=== PATIENT | female | born 1965 | race Two or more races ===

== ENCOUNTER 2021-07-23 09:39 | Emergency (ER) | payer OTHER ==
[~2021-07-23] VITALS: Ht 162.6 cm; Wt 86.2 kg
[2021-07-23] MEDS ORDERED: OMEPRAZOLE40 MG PO (10:08)
[2021-07-23] MEDS ORDERED: LOSARTAN POTAS100 MG PO (10:09)
[2021-07-23] MEDS ORDERED: LANTUS SOL100 UNIT/1 (10:09)
[2021-07-23] MEDS ORDERED: ATORVASTATIN CA10 MG PO (10:09)
[2021-07-23] MEDS ORDERED: LASIX20 MG PO (10:10)
[2021-07-23] MEDS ORDERED: ADULT LOW DOSE81 M1 PO (10:16)
== END 2021-07-23 13:11 | disposition home or self-care (01) ==
LOC: ER 09:39
DX: R06.02 Shortness of breath (principal); Z20.822 Contact with and (suspected) exposure to COVID-19

== ENCOUNTER 2022-03-13 12:14 | Emergency (ER) | payer OTHER ==
[~2022-03-13] VITALS: Ht 160 cm; Wt 90.7 kg
[~2022-03-13 12:14] MED LIST: ADULT LOW DOSE81 M1 PO; ATORVASTATIN CA10 MG PO; LANTUS SOL100 UNIT/1; LASIX20 MG PO; LOSARTAN POTAS100 MG PO; OMEPRAZOLE40 MG PO
[2022-03-13] MEDS ORDERED: BUSPIRONE HCL5 MG PO (12:24)
[2022-03-13] MEDS ORDERED: KAPSPARGO SPRI100 MG PO (12:25)
[2022-03-13] MEDS ORDERED: LAMOTRIGINE200 MG PO (12:25)
== END 2022-03-13 19:10 | disposition home or self-care (01) ==
LOC: ER 12:14
DX: R10.11 Right upper quadrant pain (principal); K57.90 Diverticulosis of intestine, part unspecified, without perforation or abscess without bleeding; R16.0 Hepatomegaly, not elsewhere classified; K76.0 Fatty (change of) liver, not elsewhere classified; E11.9 Type 2 diabetes mellitus without complications; Z79.4 Long term (current) use of insulin

== ENCOUNTER 2023-06-29 14:30 | Emergency (ER) | payer OTHER ==
[~2023-06-29] VITALS: Ht 160 cm; Wt 86.2 kg
[~2023-06-29 14:30] MED LIST changes: +BUSPIRONE HCL5 MG PO; +KAPSPARGO SPRI100 MG PO; +LAMOTRIGINE200 MG PO
== END 2023-06-29 17:52 | disposition home or self-care (01) ==
LOC: ER 14:31
DX: I80.9 Phlebitis and thrombophlebitis of unspecified site (principal); I10 Essential (primary) hypertension; E11.9 Type 2 diabetes mellitus without complications; Z79.4 Long term (current) use of insulin

== ENCOUNTER 2023-11-09 10:30 | Emergency (ER) | payer OTHER ==
[~2023-11-09] VITALS: Ht 160 cm; Wt 86.2 kg
[2023-11-09] MEDS ORDERED: METOPROLOL SUC100 MG PO (11:39)
[2023-11-09] MEDS ORDERED: OMEPRAZOLE20 MG PO (11:40)
[2023-11-09] MEDS ORDERED: BUSPIRONE HCL15 MG PO (11:41)
[2023-11-09] MEDS ORDERED: LANTUS SOL100 UNIT/1 SQ (11:41)
[2023-11-09] MEDS ORDERED: LAMICTAL200 MG PO (11:41)
[2023-11-09] MEDS ORDERED: LIPITOR40 M1 PO (11:42)
[2023-11-09 14:57] LABS: HEMATOCRIT 43.8 % (36.0-45.00); HEMOGLOBIN 13.8 g/dL (12.0-15.00); MEAN CELL VOLUME 81.2 fL (80.00-100.00); MEAN CORPUSCULAR HEMOGLOBIN 25.6 pg (27.00-32.0); MEAN CORPUSCULAR HGB CONC 31.5 g/dl (32.0-36.0); PLATELET COUNT 238 K/uL (150-450); RED CELL DISTRIBUTION WIDTH 14.1 % (11.5-14.5)
[2023-11-09 15:00] LABS: URINE APPEARANCE Clear; URINE BILIRRUBIN Negative (NEGATIVE); URINE BLOOD Moderate; URINE COLOR Yellow; URINE LEUKOCYTE Negative; URINE NITRATE Negative; URINE PROTEIN Negative (NEGATIVE); URINE UROBILINOGEN 0.2 E.U./dl
[2023-11-09 15:05] LABS: URINE BACTERIA 105.7 uL (0.0-1933); URINE EPITHELIAL CELLS 19.9 uL (0.0-38.8); URINE GLUCOSE 500 MG/DL (NEGATIVE); URINE RBC 74.8 uL (0.0-20.8); URINE WBC 4.6 uL (0.0-23.2)
[2023-11-09 15:21] LABS: ALBUMIN 3.8 gm/dL (3.4-5.0); CREATININE SERUM 0.74 mg/dL (0.55-1.02); GFR 80.05; PHOSPHOROUS 2.9 mg/dL (2.5-4.9); POTASSIUM 4.57 mEq/L (3.5-5.1)
== END 2023-11-09 17:35 | disposition home or self-care (01) ==
LOC: ER 10:31
PROVIDERS: General Practice
DX: R10.11 Right upper quadrant pain (principal); N39.0 Urinary tract infection, site not specified; I10 Essential (primary) hypertension; E11.9 Type 2 diabetes mellitus without complications; Z79.4 Long term (current) use of insulin